=== PATIENT | female | born 1955 | race African-American/Black ===

== ENCOUNTER → 2017-12-02 | Outpatient (CLI) | payer OTHER | LOC: M.RAD 14:19 | DX: Z12.31 Encounter for screening mammogram for malignant neoplasm of breast (principal) ==

== ENCOUNTER → 2019-02-14 | Outpatient (CLI) | payer OTHER | LOC: M.RAD 13:24 | DX: Z12.31 Encounter for screening mammogram for malignant neoplasm of breast (principal) ==

== ENCOUNTER → 2021-01-09 | Outpatient (CLI) | payer OTHER | LOC: M.RAD 15:57 | PROVIDERS: ATTEND Family Medicine | DX: Z12.31 Encounter for screening mammogram for malignant neoplasm of breast (principal); N64.89 Other specified disorders of breast ==

== ENCOUNTER → 2021-02-19 | Outpatient (CLI) | payer OTHER | LOC: M.CT 13:49 | PROVIDERS: ATTEND Nurse Practitioner Family | DX: Z13.6 Encounter for screening for cardiovascular disorders (principal) ==

== ENCOUNTER → 2021-04-16 | Outpatient (CLI) | payer OTHER | LOC: M.CRD 14:51 → M.ULTRA 16:00 → M.CRD 04-18 15:00 | PROVIDERS: ATTEND Nurse Practitioner Family | DX: E04.2 Nontoxic multinodular goiter (principal); R07.9 Chest pain, unspecified ==